=== PATIENT | female | born 1975 | race Caucasian/White ===

== ENCOUNTER 2021-04-11 11:32 | Outpatient (CLI) | payer BC | END 2021-04-11 11:33 | disposition home or self-care (01) | LOC: CSHMAMMO 11:32 | PROVIDERS: ATTEND Obstetrics & Gynecology | DX: Z12.31 Encounter for screening mammogram for malignant neoplasm of breast (principal); Z80.3 Family history of malignant neoplasm of breast | CPT/HCPCS: 77063; 77067 ==

== ENCOUNTER 2022-11-14 12:57 | Outpatient (CLI) | payer BC | END 2022-11-14 12:58 | disposition home or self-care (01) | LOC: CSHMAMMO 12:57 | PROVIDERS: ATTEND Obstetrics & Gynecology | DX: Z12.31 Encounter for screening mammogram for malignant neoplasm of breast (principal); Z80.3 Family history of malignant neoplasm of breast | CPT/HCPCS: 77063; 77067 ==